=== PATIENT | male | born 1925 | race Caucasian/White ===

== ENCOUNTER 2017-05-12 17:53 | Emergency (ER) | payer MEDICARE, OTHER ==
[2017-05-12] MEDS ORDERED: Fentanyl 100 MCG/2 ML VIAL ONE (18:34)
[2017-05-12 19:22] LABS: #Eosinphils 0.1 thou/uL (0.0-0.7); #Lymphocytes 1.3 thou/uL (1.20-3.40); #Monocytes 0.6 thou/uL (0.11-0.59); #Neutrophils 8.2 thou/uL (1.40-6.50); %Basophils 0.1 % (0.0-1.0); %Eosinophils 0.9 % (0.0-10.0); %Lymphocytes 12.9 % (21.0-51.0); %Monocytes 5.7 % (0.0-10.0); Hematocrit 44.1 % (42.0-52.0); Mean Platelet Volume 7.2 fL (7.4-10.4); Red Blood Cell (RBC) Count 4.82 mill/uL (4.70-6.10); White Blood Cell (WBC) Count 10.2 thou/uL (4.8-10.8)
[2017-05-12 19:42] LABS: ALT (SGPT) 12 U/L (8-55); AST (SGOT) 20 U/L (5-34); Alkaline Phosphatase 118 U/L (40-150); Anion Gap 14 mmol/L (10-20); BUN (Urea Nitrogen) 19 mg/dL (8.4-25.7); Bilirubin, Total 0.5 mg/dL (0.2-1.2); Calc. Creatinine Clearance 0 mL/min (70-130); Calcium 9.2 mg/dL (7.8-10.44); Carbon Dioxide 27 mmol/L (23-31); Chloride 105 mmol/L (98-107); Estimated GFR-MDRD 56; Globulin 4.1 g/dL (2.4-3.5)
--- NOTE | 2017-05-12 19:53 | RAD ---
PORTABLE CHEST ONE VIEW: 05/12/2017 6:21 p.m. HISTORY: Fall. Left shoulder pain. FINDINGS: The heart size is normal. The aorta is tortuous. The lungs are well expanded without confluent are as of consolidation, pneumothorax, or pleural effusions. There is a fracture involving the left dis maicol clavicle. POS: [facility]
--- NOTE | 2017-05-12 19:55 | RAD ---
LEFT CLAVICLE TWO VIEWS: HISTORY: Fall. Left shoulder pain. FINDINGS: There is a displaced fracture involving the left distal clavicle. POS: [facility]
== END 2017-05-12 21:45 | disposition home or self-care (01) ==
LOC: ERS 17:53
DX: S42.032A Displaced fracture of lateral end of left clavicle, initial encounter for closed fracture (principal); S00.93XA Contusion of unspecified part of head, initial encounter; I10 Essential (primary) hypertension; G30.9 Alzheimer's disease, unspecified; F02.80 Dementia in other diseases classified elsewhere, unspecified severity, without behavioral disturbance, psychotic disturbance, mood disturbance, and anxiety; Z79.899 Other long term (current) drug therapy; W10.9XXA Fall (on) (from) unspecified stairs and steps, initial encounter
CPT/HCPCS: 36415; 36416; 71010; 80053; 85025; 93005; 96374; J3010